=== PATIENT | female | born 1940 | race Caucasian/White ===

== ENCOUNTER 2016-09-27 12:25 | Inpatient (IN) | payer MEDICARE, MEDICAID ==
[~2016-09-27] VITALS: Ht 162.6 cm; Wt 104.9 kg
[2016-09-27 12:34] VITALS: BP_SYST 168
[2016-09-27] MEDS ORDERED: FUROSEMIDE 40 MG/4 ML VIAL IVP ONE (12:45)
[2016-09-27] MEDS ORDERED: NITROGLYCERIN 1 INCH (GM) OINT. TD ONE (12:45)
[2016-09-27 12:58] LABS: BASOPHILS % (AUTO) 0.3 % (0.0-2.0); EOSINOPHILS # (AUTO) 0.1 K/uL (0.0-0.4); EOSINOPHILS % (AUTO) 1.3 % (0.0-4.0); HEMATOCRIT 31.7 % (36-48); HEMOGLOBIN 10.2 g/dL (12.0-16.0); LYMPHOCYTES # (AUTO) 1.5 K/uL (1.0-5.5); LYMPHOCYTES % (AUTO) 16.2 % (20.5-51.5); MEAN CORPUSCULAR HEMOGLOBIN 28 pg (27-31); MEAN CORPUSCULAR HGB CONC 32 % (32-36); MEAN CORPUSCULAR VOLUME 86 fL (79.0-98.0); MONOCYTES # (AUTO) 0.5 K/uL (0.0-1.0); MONOCYTES % (AUTO) 5.5 % (1.7-9.3); NEUTROPHILS # (AUTO) 7.4 K/uL (1.8-7.7); NEUTROPHILS % (AUTO) 76.7 % (40.0-70.0); PLATELET COUNT (AUTO) 341 K/uL (130-430); RED BLOOD CELL COUNT(AUTO) 3.67 MIL/uL (4.2-6.2); RED CELL DISTRIBUTION WIDTH 14.7 % (9.0-15.0); WHITE BLOOD COUNT (AUTO) 9.5 K/uL (4.8-10.8)
[2016-09-27 13:01] LABS: ANION GAP 6 (5-15); CHLORIDE 107 mmol/L (98-107); GLUCOSE 75 mg/dL (70-99); POTASSIUM 3.6 mmol/L (3.5-5.1); SODIUM SERUM 143 mmol/L (136-145); UREA NITROGEN, BLOOD 13 mg/dL (8-21)
[2016-09-27 13:06] LABS: ALANINE AMINOTRANSFERASE 17 U/L (12-78); ALBUMIN 3.4 g/dL (3.4-4.8); ASPARTATE AMINOTRANSFERASE 19 U/L (10-37); TOTAL BILIRUBIN 0.5 mg/dL (0.0-1.0); TOTAL PROTEIN, SERUM 7.2 g/dL (6.4-8.3)
[2016-09-27 13:18] LABS: PROTHROMBIN TIME 10.6 SECS (9.5-12.5)
[2016-09-27 13:20] LABS: BLOOD GAS PH 7.456 (7.350-7.450)
[2016-09-27 13:21] LABS: ABG TOTAL HEMOGLOBIN 10.8 G/dL (12.0-18.0); BLOOD GAS BASE EXCESS 1.5 mmol/L (-3.0-3.0); BLOOD GAS COHb% 0.5 % (0.5-1.5); BLOOD GAS HHB 4.5 % (0.0-6.0); BLOOD O2Hb% 94.7 % (94.0-97.0)
[2016-09-27] MEDS ORDERED: IPRATROPIUM BROM 0.5 MG/2.5 ML VIAL.NEB (ATROVENT) IH ONE (14:00)
[2016-09-27] MEDS ORDERED: ALBUTEROL SULFATE 0.083% 2.5 MG/3 ML VIAL.NEB IH ONE (14:00)
[2016-09-27] MEDS ORDERED: IPRATROPIUM BROM 0.5 MG/2.5 ML VIAL.NEB (ATROVENT) INH ONE (14:15)
[2016-09-27] MEDS ORDERED: ALBUTEROL SULFATE 0.083% 2.5 MG/3 ML VIAL.NEB INH ONE (14:15)
[2016-09-27] MEDS ORDERED: ACETAMINOPHEN 325 MG TABLET PO PRN (16:00)
[2016-09-27] MEDS ORDERED: FURO-149 PO (16:56)
[2016-09-27] MEDS ORDERED: CARV3.1246 PO (16:56)
[2016-09-27] MEDS ORDERED: ASPI81TA2 PO (16:56)
[2016-09-27] MEDS ORDERED: DEXTROSE 50%-WATER 50 ML DISP.SYRIN IVP PRN ×2 (17:00)
[2016-09-27] MEDS ORDERED: ALBUTEROL MDI INHALATION 8 GM INH INH SCH (17:00)
[2016-09-27] MEDS ORDERED: FUROSEMIDE 20 MG/2 ML VIAL IVP ONE (17:00)
[2016-09-27] MEDS ORDERED: GLUCOSE 15 GM GEL (in 37.5 GM TUBE) PO PRN ×2 (17:00)
[2016-09-27 17:28] VITALS: BP_SYST 142
[2016-09-27 17:29] VITALS: BP_SYST 142
[2016-09-27 17:50] VITALS: BP_SYST 142
[2016-09-27] MEDS: INSULIN REGULAR, HUMAN 100 UNITS/ML, 10 ML VIAL (novoLIN R) SUBCUT PRN ×2 (18:15→21:13)
[2016-09-27] MEDS: ALBUTEROL SULFATE 0.083% 2.5 MG/3 ML VIAL.NEB INH SCH (19:42)
[2016-09-27 19:51] VITALS: BP_SYST 161
[2016-09-27] MEDS ORDERED: FUROSEMIDE 20 MG/2 ML VIAL IVP SCH (21:00)
[2016-09-27] MEDS: PANTOPRAZOLE GRANULES PACKET 40 MG GT SCH (21:02)
[2016-09-27] MEDS ORDERED: MORPHINE 2 MG/ML INJ. SYRINGE IVP PRN (23:45)
[2016-09-28 00:07] VITALS: BP_SYST 133
[2016-09-28] MEDS: ALBUTEROL SULFATE 0.083% 2.5 MG/3 ML VIAL.NEB INH SCH ×4 (01:55→20:29)
[2016-09-28 04:01] VITALS: BP_SYST 142
[2016-09-28 06:39] LABS: BASOPHILS % (AUTO) 0.5 % (0.0-2.0); EOSINOPHILS # (AUTO) 0.1 K/uL (0.0-0.4); EOSINOPHILS % (AUTO) 1.6 % (0.0-4.0); HEMATOCRIT 29.9 % (36-48); HEMOGLOBIN 9.5 g/dL (12.0-16.0); LYMPHOCYTES % (AUTO) 25.7 % (20.5-51.5); MEAN CORPUSCULAR HEMOGLOBIN 28 pg (27-31); MEAN CORPUSCULAR HGB CONC 32 % (32-36); MEAN CORPUSCULAR VOLUME 87 fL (79.0-98.0); MONOCYTES # (AUTO) 0.6 K/uL (0.0-1.0); MONOCYTES % (AUTO) 7.6 % (1.7-9.3); NEUTROPHILS # (AUTO) 5.1 K/uL (1.8-7.7); NEUTROPHILS % (AUTO) 64.6 % (40.0-70.0); PLATELET COUNT (AUTO) 280 K/uL (130-430); RED BLOOD CELL COUNT(AUTO) 3.43 MIL/uL (4.2-6.2); RED CELL DISTRIBUTION WIDTH 14.5 % (9.0-15.0); WHITE BLOOD COUNT (AUTO) 7.8 K/uL (4.8-10.8)
[2016-09-28] MEDS: INSULIN REGULAR, HUMAN 100 UNITS/ML, 10 ML VIAL (novoLIN R) SUBCUT PRN ×4 (06:39→22:24)
[2016-09-28 07:04] LABS: ALANINE AMINOTRANSFERASE 11 U/L (12-78); ALBUMIN 2.9 g/dL (3.4-4.8); ANION GAP 4 (5-15); ASPARTATE AMINOTRANSFERASE 16 U/L (10-37); CALCIUM 8.9 mg/dL (8.4-11.0); CHLORIDE 101 mmol/L (98-107); CREATININE 1.11 mg/dL (0.55-1.30); GLUCOSE 203 mg/dL (70-99); POTASSIUM 3.3 mmol/L (3.5-5.1); SODIUM SERUM 139 mmol/L (136-145); TOTAL BILIRUBIN 0.7 mg/dL (0.0-1.0); TOTAL PROTEIN, SERUM 6.6 g/dL (6.4-8.3); UREA NITROGEN, BLOOD 14 mg/dL (8-21)
[2016-09-28 08:20] VITALS: BP_SYST 129
[2016-09-28 08:36] LABS: BLOOD GAS PH 7.487 (7.350-7.450)
[2016-09-28 08:37] LABS: ABG TOTAL HEMOGLOBIN 10.7 G/dL (12.0-18.0); BLOOD GAS BASE EXCESS 8.2 mmol/L (-3.0-3.0); BLOOD GAS HHB 6.8 % (0.0-6.0); BLOOD O2Hb% 92.1 % (94.0-97.0)
[2016-09-28] MEDS: PANTOPRAZOLE GRANULES PACKET 40 MG GT SCH ×2 (09:00→21:32)
[2016-09-28] MEDS ORDERED: POTASSIUM CHLORIDE 20 MEQ TAB.PRT.SR PO ONE (09:00)
[2016-09-28] MEDS: ASPIRIN 81 MG TAB.CHEW PO SCH (09:00)
[2016-09-28] MEDS: FUROSEMIDE 40 MG TABLET PO SCH (09:01)
[2016-09-28] MEDS: LISINOPRIL 5 MG TABLET PO SCH (09:03)
[2016-09-28] MEDS: CARVEDILOL 3.125 MG TABLET (COREG) PO SCH ×2 (09:04→21:32)
[2016-09-28] MEDS ORDERED: HYDROcodone/ACETAMIN 5-325 MG TAB (NORCO/ VICODIN) PO PRN (12:00)
[2016-09-28 12:21] VITALS: BP_SYST 168
[2016-09-28 16:06] VITALS: BP_SYST 139
[2016-09-28 19:45] VITALS: BP_SYST 135
[2016-09-28] MEDS ORDERED: ZOLPIDEM TARTRATE 5 MG TABLET PO PRN (22:00)
[2016-09-29] MEDS: ALBUTEROL SULFATE 0.083% 2.5 MG/3 ML VIAL.NEB INH SCH ×3 (01:00→13:45)
[2016-09-29 04:19] VITALS: BP_SYST 170
[2016-09-29 06:27] LABS: ANION GAP 3 (5-15); CALCIUM 8.9 mg/dL (8.4-11.0); CHLORIDE 101 mmol/L (98-107); CREATININE 1.15 mg/dL (0.55-1.30); GLUCOSE 255 mg/dL (70-99); POTASSIUM 4.4 mmol/L (3.5-5.1); SODIUM SERUM 137 mmol/L (136-145); UREA NITROGEN, BLOOD 17 mg/dL (8-21)
[2016-09-29] MEDS: INSULIN REGULAR, HUMAN 100 UNITS/ML, 10 ML VIAL (novoLIN R) SUBCUT PRN ×2 (06:28→11:54)
[2016-09-29 06:40] LABS: BASOPHILS % (AUTO) 0.3 % (0.0-2.0); EOSINOPHILS # (AUTO) 0.3 K/uL (0.0-0.4); EOSINOPHILS % (AUTO) 3.3 % (0.0-4.0); HEMATOCRIT 32.1 % (36-48); HEMOGLOBIN 10.3 g/dL (12.0-16.0); LYMPHOCYTES # (AUTO) 1.6 K/uL (1.0-5.5); LYMPHOCYTES % (AUTO) 19.2 % (20.5-51.5); MEAN CORPUSCULAR HEMOGLOBIN 28 pg (27-31); MEAN CORPUSCULAR HGB CONC 32 % (32-36); MEAN CORPUSCULAR VOLUME 87 fL (79.0-98.0); MONOCYTES # (AUTO) 0.6 K/uL (0.0-1.0); MONOCYTES % (AUTO) 7.4 % (1.7-9.3); NEUTROPHILS % (AUTO) 69.8 % (40.0-70.0); PLATELET COUNT (AUTO) 282 K/uL (130-430); RED BLOOD CELL COUNT(AUTO) 3.68 MIL/uL (4.2-6.2); RED CELL DISTRIBUTION WIDTH 14.1 % (9.0-15.0); WHITE BLOOD COUNT (AUTO) 8.5 K/uL (4.8-10.8)
[2016-09-29] MEDS ORDERED: LISI-209 PO (08:32)
[2016-09-29 08:47] VITALS: BP_SYST 152
[2016-09-29] MEDS: PANTOPRAZOLE GRANULES PACKET 40 MG GT SCH (08:50)
[2016-09-29] MEDS: FUROSEMIDE 40 MG TABLET PO SCH (08:51)
[2016-09-29] MEDS: LISINOPRIL 5 MG TABLET PO SCH (08:51)
[2016-09-29] MEDS: ASPIRIN 81 MG TAB.CHEW PO SCH (08:51)
[2016-09-29] MEDS: CARVEDILOL 3.125 MG TABLET (COREG) PO SCH (08:52)
[2016-09-29 12:00] VITALS: BP_SYST 156
[2016-09-29 13:37] VITALS: BP_SYST 137
[2016-09-29 16:00] VITALS: BP_SYST 149
== END 2016-09-29 16:20 | disposition home or self-care (01) | DRG 291 ==
LOC: SED 12:25 → STU 15:54
PROVIDERS: ADMIT Internal Medicine; ATTEND Internal Medicine
DX: I13.0 Hypertensive heart and chronic kidney disease with heart failure and stage 1 through stage 4 chronic kidney disease, or unspecified chronic kidney disease (principal); I50.23 Acute on chronic systolic (congestive) heart failure; E66.9 Obesity, unspecified; D63.8 Anemia in other chronic diseases classified elsewhere; E11.22 Type 2 diabetes mellitus with diabetic chronic kidney disease; N18.3 Chronic kidney disease, stage 3 (moderate); Z91.14 Patient's other noncompliance with medication regimen; Z68.39 Body mass index [BMI] 39.0-39.9, adult; Z88.0 Allergy status to penicillin; Z90.49 Acquired absence of other specified parts of digestive tract
CPT/HCPCS: 36415; 36600; 71010; 80048; 80053; 82803-TC; 82962; 83605; 83735-TC; 83880; 84484; 85025; 85610-TC; 85730-TC; 87040-TC; 93005; 94640; 94760; 96374; 97116-GP; 97530-GP; 99285; J1815; J1940; J2270